=== PATIENT | male | born 1985 ===

== ENCOUNTER → 2023-01-23 14:32 | Outpatient (CLI) | payer OTHER, SELFPAY ==
--- NOTE | 2023-01-23 | DI.CT.S_ITS ---
PROCEDURE: CT LUMBAR SPINE WO CON INDICATIONS: lumbar disc disease TECHNIQUE: Noncontrast 3 mm thick sections acquired from the T12 level to the sacrum. Sagittal and coronal reformats were constructed. For radiation dose reduction, the following was used: automated exposure control. COMPARISON: None. FINDINGS: Image quality: Excellent. Bones: There is normal bony alignment. No acute vertebral body compression fractures. No suspicious lytic or blastic bony lesions. No pars defects. T12-L1: Within normal limits. L1-L2: Within normal limits. L2-L3: Mild degenerative endplate changes are seen. No significant disc bulge, canal stenosis or neural foraminal narrowing. L3-L4: Mild degenerative endplate changes are noted. Mild diffuse disc bulge is seen without significant canal stenosis. There is mild left-sided neural foraminal narrowing. L4-L5: Degenerative endplate changes are seen. Broad-based disc bulge and bilateral facet arthrosis is noted causing mild central canal stenosis and left worse than right bilateral neural foraminal narrowing. L5-S1: Degenerative endplate changes and loss of disc height is seen. Diffuse disc bulge and bilateral facet arthrosis is seen causing mild central canal stenosis and moderate bilateral neural foraminal narrowing worse on the left side. Soft tissues: No retroperitoneal masses or hematomas. Visualized aorta is normal in caliber. IMPRESSION: 1. Mild degenerative disc disease at L2-3 through L5-S1 levels. Mild central canal stenosis and left worse than right bilateral neural foraminal narrowing is seen at L4-5 and L5-S1 levels. 2. No acute compression fracture or spondylolisthesis. 3. No gross paraspinous soft tissue abnormalities. Dictated by: Aki Francisco M.D. on 01/23/2023 at 16:34 Approved by: Aki Francisco M.D. on 01/23/2023 at 16:50
== END ==
PROVIDERS: Referring Provider Orthopaedic Surgery Orthopaedic Surgery of the Spine; Visit Provider Orthopaedic Surgery Orthopaedic Surgery of the Spine
DX: M51.9 Unspecified thoracic, thoracolumbar and lumbosacral intervertebral disc disorder (principal); M51.36 Other intervertebral disc degeneration, lumbar region; M48.061 Spinal stenosis, lumbar region without neurogenic claudication; M51.37 Other intervertebral disc degeneration, lumbosacral region; M48.07 Spinal stenosis, lumbosacral region
CPT/HCPCS: 72131